=== PATIENT | female | born 1995 | race Two or more races ===

== ENCOUNTER 2016-04-23 08:59 | Emergency (ER) | payer MEDICAID ==
[~2016-04-23] VITALS: Ht 170.2 cm; Wt 73.9 kg
[2016-04-23 09:06] VITALS: BP 125/83; PULSE 100; RESP 16; TEMP 99.3; O2SAT 100
[2016-04-23] MEDS ORDERED: AUGM875T PO (09:27)
[2016-04-23] MEDS ORDERED: IBUP-232 PO (09:27)
--- NOTE | 2016-04-23 09:27 | PD ---
HPI Chief Complaint: Cold / Flu Symptoms Time Seen by Provider: 09:17 Travel History International Travel<30 days: No Contact w/Intl Traveler<30days: No Traveled to known affect area: No History of Present Illness HPI Patient is a 20-year-old female who presents to emergency room with complaints of not feeling well. Patient reports that since yesterday, she has had sore throat with bilateral ear pain and increased congestion. Patient reports no fevers or chills, denies any headaches. Patient denies any chest pain or shortness of breath or cough. Patient denies any sick contacts. Patient denies any body aches or myalgias. Patient reports that her throat feels sore and reports pain with swallowing. Patient with no allergies to medicines, patient with no current medical problems at this time. PFSH Past Medical History Medical History: Denies Significant Hx Tetanus Vaccination: Unknown Influenza Vaccination: No ?: Not LMP: 04/22/16 Past Surgical History Surgical History: No Previous Surgery Other Surgery: Yes (kidney stones) Social History Alcohol Use: Yes (Occ.) Tobacco Use: No Substance Use: No Allergies-Medications (Allergen,Severity, Reaction): Coded Allergies: No Known Allergies (Unverified , 04/23/16) Reported Meds & Prescriptions Reported Meds & Active Scripts Active Ibuprofen 600 Mg Tab 600 Mg PO Q6H PRN Augmentin (Amoxicillin-Clavulanate) 875-125 mg Tab 875 Mg PO BID 10 Days not for use in CrCl <30 ml/min. Review of Systems General / Constitutional: No: Fever, Chills Eyes: No: Visual changes HENT: Positive: Sore Throat, Rhinorrhea, Congestion, Earache, No: Headaches, Rhinitis, Nosebleed, Neck Stiffness, Neck Pain, Ear Discharge Cardiovascular: No: Chest Pain or Discomfort, Palpitations Respiratory: No: Shortness of Breath Gastrointestinal: No: Abdominal Pain Genitourinary: No: Dysuria Musculoskeletal: No: Pain Skin: No Rash Neurologic: No: Weakness Psychiatric: No: Depression Endocrine: No: Polydipsia Hematologic/Lymphatic: No: Easy Bruising Physical Exam Narrative GENERAL: No acute distress, nontoxic SKIN: Warm and dry. HEAD: Atraumatic. Normocephalic. EYES: Pupils equal and round. No scleral icterus. No injection or drainage. ENT: No nasal bleeding or discharge. Mucous membranes pink and moist. Patient with white exudates to left tonsils, patient with mild erythema to posterior pharynx bilaterally NECK: Trachea midline. No JVD. CARDIOVASCULAR: Regular rate and rhythm. No murmur appreciated. RESPIRATORY: No accessory muscle use. Clear to auscultation. Breath sounds equal bilaterally. GASTROINTESTINAL: Abdomen soft, non-tender, nondistended. Hepatic and splenic margins not palpable. MUSCULOSKELETAL: No obvious deformities. No clubbing. No cyanosis. No edema. NEUROLOGICAL: Awake and alert. No obvious cranial nerve deficits. Motor grossly within normal limits. Normal speech. PSYCHIATRIC: Appropriate mood and affect; insight and judgment normal. Data Data Last Documented VS Vital Signs Date Time Temp Pulse Resp B/P Pulse Ox O2 Delivery O2 Flow Rate FiO2 04/23/16 09:15 14 100 Room Air 04/23/16 09:06 99.3 100 125/83 [facility] Medical Decision Making Medical Screen Exam Complete: Yes Emergency Medical Condition: Yes Interpretation(s) Vital Signs Date Time Temp Pulse Resp B/P Pulse Ox O2 Delivery O2 Flow Rate FiO2 04/23/16 09:15 14 100 Room Air 04/23/16 09:06 99.3 100 16 125/83 100 Differential Diagnosis Pharyngitis, viral syndrome, allergies Narrative Course Patient is a 20-year-old female who presents to emergency room with complaints of sore throat and bilateral ear pain, reports the symptoms began yesterday. Patient with no fevers or chills, denies any headache or dizziness at this time. Patient with no chest pain or shortness of breath, denies any cough or congestion. On exam, patient overall nontoxic, laughing and smiling. Patient does have erythema to posterior pharynx with exudates to left tonsils. Patient does have some swelling to her left cervical lymph nodes. Plan to treat with Augmentin. Signs and symptoms of when to return to the emergency room was reviewed with patient in detail. Patient will follow-up with primary care doctor and return to emergency room as needed. Diagnosis Primary Impression: Pharyngitis, acute Qualified Code: J02.9 - Acute pharyngitis, unspecified etiology Patient Instructions: General Instructions Additional Instructions: Please return to the emergency room as needed Please take all antibiotics as prescribed Please call your primary care doctor for earliest follow-up Med/Other Pt SpecificInfo: Prescription(s) given Scripts Cetirizine (Zyrtec Allergy)10 Mg Cap10 Mg PO DAILY #30 CAP Ref 0 Prov:Pema Millard DO 04/23/16 Ibuprofen 600 Mg Atd609 Mg PO Q6H PRN (Pain/Inflammation) #40 TAB Ref 0 Prov:Pema Millard DO 04/23/16 Amoxicillin-Clavulanate (Augmentin)875-125 mg Wop428 Mg PO BID 10 Days Ref 0 not for use in CrCl <30 ml/min. Prov:Pema Millard DO 04/23/16 Disposition: 01 DISCHARGE HOME Condition: Stable Pema Millard DO Apr 23, 2016 09:27
[2016-04-23] MEDS ORDERED: ZYRT10CA PO (09:28)
[2016-04-23] MEDS ORDERED: AMOXICILLIN/CLAVULANATE K 875 MG TAB PO ONE (09:30)
== END 2016-04-23 09:40 | disposition home or self-care (01) ==
LOC: PHED 08:59
DX: J02.9 Acute pharyngitis, unspecified (principal); H92.03 Otalgia, bilateral
CPT/HCPCS: 99283